=== PATIENT | male | born 1995 | race Caucasian/White ===

== ENCOUNTER 2023-05-29 18:43 | Emergency (ER) | payer MEDICAID ==
[~2023-05-29] VITALS: Ht 180.3 cm; Wt 83.9 kg
[2023-05-29 19:09] VITALS: BP_SYST 123; PULSE 81; RESP 16; TEMP 99.2; O2SAT 99
[2023-05-29] MEDS ORDERED: CEFU250T85 PO (19:20)
[2023-05-29] MEDS ORDERED: MOME17SP15 NAS (19:20)
[2023-05-29] MEDS ORDERED: ACETAMINOPHEN 500 MG TABLET PO ONE (20:15)
[2023-05-29 20:21] VITALS: BP_SYST 123; PULSE 81; RESP 16; TEMP 99.2; O2SAT 99
== END 2023-05-29 20:21 | disposition home or self-care (01) ==
LOC: SED 18:43
DX: J32.9 Chronic sinusitis, unspecified (principal); H66.92 Otitis media, unspecified, left ear; R51.9 Headache, unspecified; Z79.899 Other long term (current) drug therapy
CPT/HCPCS: 99283